=== PATIENT | male | born 1985 | race African-American/Black ===

== ENCOUNTER 2016-11-17 21:34 | Emergency (ER) | payer MEDICAID, OTHER ==
[~2016-11-17] VITALS: Ht 185.4 cm; Wt 81.6 kg
[~2016-11-17 21:34] MED LIST: ACYCLOVIR400 MG ORAL; AMOXICILLIN500 MG ORAL; COLACE100 MG ORAL; IBUPROFEN600 MG ORAL; NKM; PROMETHAZINE-D118 ML ORAL; ZITHROMAX250 MG ORAL
[2016-11-17] MEDS ORDERED: MAGNESIUM CITR296 M1 PO (22:05)
[2016-11-17] MEDS ORDERED: AUGMENTIN 875-1 EAC1 ORAL (22:05)
[2016-11-17] MEDS ORDERED: IBUPROFEN600 MG ORAL (22:05)
[2016-11-17 22:09] VITALS: BP 124/79
[2016-11-17 22:10] VITALS: BP 1/1
--- NOTE | 2016-11-18 01:44 | Emergency Room Report ---
History of Present Illness General Chief Complaint: Upper Respiratory Illness Source: Patient Present Illness HPI Patient presents with complaints of sore throat Mild cough Pain with swallowing Reports the pain is 3/10 Questionable low-grade fever Denies any neck pain or photophobia denies any chest pain Symptoms ongoing for the past several days Patient had tried gargling which was not helping patient also reports smoking cigars Allergies: Coded Allergies: No Known Allergies (Unverified , 11/18/15) Patient History Past Medical History: see triage record Pertinent Family History: none Reviewed Nursing Documentation: PMH: Agreed, PSxH: Agreed Nursing Documentation-PMH Past Medical History: No Stated History Review of Systems All Other Systems: negative except mentioned in HPI Physical Exam Vital Signs Date Time Temp Pulse Resp B/P Pulse Ox O2 Delivery O2 Flow Rate FiO2 11/17/16 21:55 100.2 99 13 124/79 98 Room Air Sp02 EP Interpretation: reviewed, normal General Appearance: well appearing, no apparent distress Head: normocephalic, atraumatic Eyes: bilateral eye EOMI, bilateral eye PERRL ENT: hearing grossly normal, TMs + canals normal, uvula midline, pharyngeal erythema Neck: full range of motion, supple, no meningismus, no bony tend Respiratory: lungs clear, normal breath sounds, no rhonchi, no respiratory distress, no retraction, no accessory muscle use Cardiovascular #1: normal peripheral pulses, regular rate, rhythm, no edema, no gallop, no JVD, no murmur Gastrointestinal: normal bowel sounds, non tender, soft, no mass, no organomegaly, non-distended, no guarding, no hernia, no pulsatile mass, no rebound Genitourinary: no CVA tenderness Musculoskeletal: normal inspection Neurologic: oriented x3, responsive, 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, motor strength/ tone normal, sensory intact Psychiatric: mood/affect normal Skin: normal color, no rash, warm/dry, palpation normal Lymphatic: normal inspection, no adenopathy Medical Decision Making Diagnostic Impression: Primary Impression: Pharyngitis ER Course Patient's clinical eval along with physical findings are in line with likely pharyngitis Uvula is midline no signs of any peritonsillar abscess Patient will have initial conservative outpatient trial on oral antibiotics and requires close followup Last Vital Signs Date Time Temp Pulse Resp B/P Pulse Ox O2 Delivery O2 Flow Rate FiO2 11/17/16 22:10 10/1711/17/16 22:09 100.2 13 98 Room Air 11/17/16 22:09 99 Status: improved Disposition: HOME, SELF-CARE Condition: Stable Scripts Magnesium Citrate (MAGNESIUM CITRATE) 296 Ml Solution 150 ML PO DAILY for 5 Days, ML Prov: ELVIRA LAWRENCE D.O. 11/17/16 Ibuprofen* (MOTRIN*) 600 Mg Tablet 600 MG ORAL Q8H Y for For Pain, #20 TAB 0 Refills Prov: ELVIRA LAWRENCE D.O. 11/17/16 Amoxicillin/Potassium Clav 875-125* (AUGMENTIN 875-125 TABLET*) 1 Each Tablet 1 TAB ORAL TWICE A DAY, #14 TAB Prov: ELVIRA LAWRENCE D.O. 11/17/16 Referrals: [facility],REFERRING (PCP) Patient Instructions: Pharyngitis Additional Instructions: Patient is provided with the discharge instructions notified to follow up with primary doctor in the next 2-3 days otherwise return to the er with any worsening symptoms. ELVIRA LAWRENCE D.O. Nov 18, 2016 01:44
== END 2016-11-17 22:10 | disposition home or self-care (01) ==
LOC: EMR 22:04
DX: J02.9 Acute pharyngitis, unspecified (principal)
CPT/HCPCS: 99284

== ENCOUNTER 2017-06-02 22:37 | Emergency (ER) | payer MEDICAID ==
[~2017-06-02] VITALS: Ht 185.4 cm; Wt 77.1 kg
[~2017-06-02 22:37] MED LIST changes: +AUGMENTIN 875-1 EAC1 ORAL; +MAGNESIUM CITR296 M1 PO
[2017-06-02 22:45] VITALS: BP 120/74
--- NOTE | 2017-06-02 23:09 | Emergency Room Report ---
History of Present Illness General Chief Complaint: Upper Respiratory Illness Source: Patient Present Illness HPI Patient presents with 2 weeks of upper respiratory symptoms. This congestion, dry cough, wheezing chest pain and headache. He's had some diarrhea last week. This is cleared up. Initially productive phlegm. Still with color from the drainage from his nose. He has heard himself wheezing and has used an inhaler in the past. No vomiting. + Nausea. Headache is 10/10 - pressure, more in sinuses. Allergies: Coded Allergies: No Known Allergies (Unverified , 11/18/15) Patient History Past Medical History: see triage record Social History: Reports: smoking Social History Narrative allegedly not working Reviewed Nursing Documentation: PMH: Agreed, PSxH: Agreed Nursing Documentation-PMH Past Medical History: No Stated History Review of Systems All Other Systems: negative except mentioned in HPI Physical Exam Vital Signs Date Time Temp Pulse Resp B/P Pulse Ox O2 Delivery O2 Flow Rate FiO2 06/02/17 22:41 99.1 99 18 120/74 97 Room Air Sp02 EP Interpretation: reviewed, normal General Appearance: well appearing, no apparent distress Head: normocephalic, atraumatic Eyes: bilateral eye PERRL, bilateral eye normal inspection ENT: hearing grossly normal, normal voice, moist mucus membranes, nasal congestion - and sinus pain, pharyngeal erythema Neck: full range of motion, supple Respiratory: lungs clear, normal breath sounds, no respiratory distress, speaking full sentences Cardiovascular #1: regular rate, rhythm Gastrointestinal: normal inspection, scaphoid Musculoskeletal: digits/nails normal, gait/station normal, normal range of motion Neurologic: alert, oriented x3, normal gait, grossly normal Psychiatric: mood/affect normal Skin: no rash Medical Decision Making Diagnostic Impression: Primary Impression: Sinusitis Qualified Codes: J01.00 - Acute maxillary sinusitis, unspecified Additional Impression: Bronchospasm ER Course Patient presents with 2 weeks of URI with SERNA and congestion/sinus pain. Ddx: sinusitis, bronchospasm, viral, bacterial. Will treat with albuterol and antibiotics. Also will give phenergan with codiene as pain is severe. Improved with treatment. Patient stable for outpatient observation and treatment. Last Vital Signs Date Time Temp Pulse Resp B/P Pulse Ox O2 Delivery O2 Flow Rate FiO2 06/03/17 00:50 99.1 95 19 129/78 98 Room Air Status: improved Disposition: HOME, SELF-CARE Condition: Improved Scripts Codeine/Promethazine Hcl* (PROMETHAZINE-CODEINE SYRUP*) 118 Ml Syrup 5 ML ORAL Q6H Y for For Cough, #60 ML 0 Refills Prov: Chavez Villela M.D. 06/03/17 Ibuprofen* (MOTRIN*) 600 Mg Tablet 600 MG ORAL Q6H Y for For Pain, #20 TAB Prov: Chavez Villela M.D. 06/03/17 Chlorpheniramine Maleate (CHLOR-TRIMETON) 4 Mg Tablet 4 MG PO Q6HR Y for congestion, #14 TAB Prov: Chavez Villela M.D. 06/03/17 Amoxicillin* (AMOXIL*) 500 Mg Capsule 500 MG ORAL THREE TIMES A DAY, #21 CAP Prov: Chavez Villela M.D. 06/03/17 Chavez Villela M.D. Jun 02, 2017 23:09
[2017-06-02] MEDS ORDERED: Albuterol ud Inhalation HHN ONE (23:15)
[2017-06-02] MEDS ORDERED: Promethazine/Codeine 5ml UD ORAL ONE (23:15)
[2017-06-03] MEDS ORDERED: PROMETHAZINE-C118 M1 ORAL (00:29)
[2017-06-03] MEDS ORDERED: IBUPROFEN600 MG ORAL (00:29)
[2017-06-03] MEDS ORDERED: AMOXICILLIN500 MG ORAL (00:29)
[2017-06-03] MEDS ORDERED: CHLOR-TRIMETON4 MG PO (00:29)
[2017-06-03 00:45] VITALS: BP 129/78
[2017-06-03 00:50] VITALS: BP 129/78
== END 2017-06-03 00:50 | disposition home or self-care (01) ==
LOC: EMR 23:09
DX: J32.9 Chronic sinusitis, unspecified (principal); J98.01 Acute bronchospasm; F17.200 Nicotine dependence, unspecified, uncomplicated
CPT/HCPCS: 94664; 99284

== ENCOUNTER 2017-09-13 17:24 | Emergency (ER) | payer MEDICAID ==
[~2017-09-13] VITALS: Ht 185.4 cm; Wt 65.8 kg
[~2017-09-13 17:24] MED LIST changes: +CHLOR-TRIMETON4 MG PO; +PROMETHAZINE-C118 M1 ORAL
[2017-09-13 19:15] VITALS: BP 131/82
[2017-09-13] MEDS ORDERED: AMOXICILLIN500 MG ORAL (19:33)
[2017-09-13] MEDS ORDERED: MIRALAX119 GM PO (19:33)
[2017-09-13] MEDS ORDERED: COLACE100 MG ORAL (19:33)
[2017-09-13] MEDS ORDERED: ACETAMINOPHEN-1 EAC1 ORAL (19:33)
[2017-09-13 19:36] VITALS: BP 131/82
--- NOTE | 2017-09-13 22:57 | Emergency Room Report ---
History of Present Illness General Chief Complaint: Upper Respiratory Illness Source: Patient Present Illness [facility] The patient is a 31-year-old male presenting for multiple complaints including constipation for the past week and sore throat. The patient states that he has a long-standing history of constipation and this is normal for him. Last bowel movement was 3 days ago and painful. He denies any blood in stools. He has not tried any medication or remedy for this. He is also complaining of sore throat which began yesterday. Described as an 8/ 10 dull ache to the back of the throat and is worse with swallowing. He admits to sick contacts with the same symptoms. He denies any recent travel. He denies any radiating pain. He denies any other symptoms including N, V, F, chills, melena, hematochezia, abd pain Allergies: Coded Allergies: No Known Allergies (Unverified , 11/18/15) Patient History Past Medical History: see triage record Pertinent Family History: none Reviewed Nursing Documentation: PMH: Agreed, PSxH: Agreed Nursing Documentation-PMH Past Medical History: No Stated History Review of Systems All Other Systems: negative except mentioned in HPI Physical Exam Vital Signs Date Time Temp Pulse Resp B/P (MAP) Pulse Ox O2 Delivery O2 Flow Rate FiO2 09/13/17 17:38 99.1 86 16 131/82 98 Room Air 09/13/17 18:00 96 Sp02 EP Interpretation: reviewed, normal General Appearance: no apparent distress, alert, GCS 15, non-toxic Head: normocephalic, atraumatic Eyes: bilateral eye normal inspection, bilateral eye PERRL ENT: hearing grossly normal, no angioedema, normal voice, uvula midline, tonsillar swelling, pharyngeal erythema Neck: full range of motion, supple/symm/no masses Respiratory: chest non-tender, lungs clear, normal breath sounds, speaking full sentences Cardiovascular #1: regular rate, rhythm, no edema Gastrointestinal: normal bowel sounds, non tender, soft, non-distended, no guarding, no rebound Musculoskeletal: back normal, gait/station normal, normal range of motion, non- tender Neurologic: alert, oriented x3, responsive, motor strength/tone normal, sensory intact, speech normal Psychiatric: judgement/insight normal, memory normal, mood/affect normal, no suicidal/homicidal ideation Skin: normal color, no rash, warm/dry, well hydrated Lymphatic: adenopathy - cervical Medical Decision Making PA Attestation Dr. Spence is my supervising physician. Patient management was discussed with my supervising physician Diagnostic Impression: Primary Impression: Pharyngitis Qualified Codes: J02.9 - Acute pharyngitis, unspecified Additional Impression: Constipation Qualified Codes: K59.00 - Constipation, unspecified ER Course The patient is a 31-year-old male presenting for multiple complaints including constipation for the past week and sore throat Differential diagnosis include but not limited to pharyngitis, sinusitis, AOM, bronchitis, PNA Differential diagnoses considered but not limited to: Constipation, gastroenteritis, hemorrhoids, among others Physical exam: Vitals within normal limits. Afebrile. No apparent distress HEENT exam: There is bilateral tonsillar edema, erythema. Uvula midline. Moist mucous membranes. There is bilateral cervical lymphadenopathy. Abd is soft and non tender. Normal BS. Non distended Lungs are clear to auscultation bilaterally Skin is warm and dry. No rash The patient will be discharged home with a prescription for amoxicillin, T3, miralax, and colace and is given ER precautions. Patient will followup with primary care Last Vital Signs Date Time Temp Pulse Resp B/P (MAP) Pulse Ox O2 Delivery O2 Flow Rate FiO2 09/13/17 19:36 99.1 16 131/82 98 Room Air 96 09/13/17 19:15 88 Status: improved Disposition: HOME, SELF-CARE Condition: Improved Scripts Amoxicillin* (AMOXIL*) 500 Mg Capsule 500 MG ORAL Q12HR, #20 CAP Prov: TERZIAN,LEATHA P.A. 09/13/17 Acetaminophen With Codeine (T#3) (TYLENOL #3 TAB*) Y Tab 1 TAB ORAL Q6HR Y for For Pain, #10 TAB Prov: TERZIAN,LEATHA P.A. 09/13/17 Polyethylene Glycol 3350 (MIRALAX) 119 Gm Powder 17 GM PO DAILY, #119 GM Prov: TERZIAN,LEATHA P.A. 09/13/17 Docusate Sodium* (COLACE*) 100 Mg Capsule 100 MG ORAL TWICE A DAY, #15 CAP Prov: TERZIAN,LEATHA P.A. 09/13/17 Referrals: NON PHYSICIAN (PCP) Patient Instructions: Constipation, Adult, Upper Respiratory Infection, Adult Additional Instructions: I discussed my findings with the patient. All questions and concerns have been answered. Treatment and medication compliance have been addressed. I advised the patient that they need to follow up with PMD in 3-5 days. Return to ED if pain remains or worsens, cough worsens or remains, you notice blood in your sputum, you notice wheezing, you experience a fever, or if needed for any reason. Patient verbalized understanding of discharge instructions. LEATHA MARROQUIN Sep 13, 2017 22:57
--- NOTE | 2017-09-14 11:17 | Diagnostic Imaging Report ---
Indication: COUGH Technique: One view of the chest Comparison: none Findings: Lungs and pleural spaces are clear. Heart size is normal Impression: No acute process
== END 2017-09-13 19:36 | disposition home or self-care (01) ==
LOC: EMR 18:41
DX: J02.9 Acute pharyngitis, unspecified (principal); K59.00 Constipation, unspecified; R05 Cough
CPT/HCPCS: 71010; 99284

== ENCOUNTER 2017-11-02 21:18 | Emergency (ER) | payer MEDICAID ==
[~2017-11-02] VITALS: Ht 185.4 cm; Wt 79.4 kg
[~2017-11-02 21:18] MED LIST changes: +ACETAMINOPHEN-1 EAC1 ORAL; +MIRALAX119 GM PO
[2017-11-02 21:30] VITALS: BP 110/74
--- NOTE | 2017-11-02 21:33 | Emergency Room Report ---
History of Present Illness General Chief Complaint: Flu Like Symptoms Source: Patient Present Illness HPI Is a 32-year-old male with no past medical history. He presents with chief complaint of sore throat, congestion, cough. Onset for last 2 days. He just got back from out of town and flew in. Denies any other complaint. Pain is 8/ 10. Worse with lying flat. No nausea no vomiting. No fever or chill. Allergies: Coded Allergies: No Known Allergies (Unverified , 11/18/15) Patient History Past Medical History: none, see triage record, old chart reviewed Past Surgical History: none Pertinent Family History: none Social History: Denies: smoking Immunizations: other Reviewed Nursing Documentation: PMH: Agreed, PSxH: Agreed Nursing Documentation-PMH Past Medical History: No Stated History Review of Systems Eye: Denies: eye pain, blurred vision ENT: Reports: nose congestion, throat pain, nasal discharge, Denies: ear pain, throat swelling Respiratory: Reports: cough, Denies: shortness of breath Cardiovascular: Denies: chest pain, palpitations Gastrointestinal: Denies: abdominal pain, diarrhea, nausea, vomiting Musculoskeletal: Denies: back pain, joint pain Skin: Denies: rash Neurological: Denies: headache, numbness Endocrine: Denies: increased thirst, increased urine Hematologic/Lymphatic: Denies: easy bruising All Other Systems: negative except mentioned in HPI Physical Exam Vital Signs Date Time Temp Pulse Resp B/P (MAP) Pulse Ox O2 Delivery O2 Flow Rate FiO2 11/02/17 21:21 99.1 108 20 109/78 95 Room Air vitals unremarkable Sp02 EP Interpretation: reviewed, normal General Appearance: well appearing, no apparent distress, alert Head: normocephalic, atraumatic Eyes: bilateral eye PERRL, bilateral eye EOMI ENT: hearing grossly normal, uvula midline - Enlarged, tonsillar swelling, pharyngeal erythema Neck: full range of motion, supple, no meningismus Respiratory: chest non-tender, lungs clear, normal breath sounds Cardiovascular #1: regular rate, rhythm, no murmur Gastrointestinal: normal bowel sounds, non tender, no mass, no organomegaly, no bruit, non-distended Musculoskeletal: back normal, gait/station normal, normal range of motion Psychiatric: mood/affect normal Skin: warm/dry Medical Decision Making Diagnostic Impression: Primary Impression: Upper respiratory infection Qualified Codes: J06.9 - Acute upper respiratory infection, unspecified ER Course Present with an upper rest or infection secondary to a viral illness. No evidence of bacterial infection. Patient reassured. No evidence of strep throat, meningitis, pneumonia to name a few. We'll discharge home. Last Vital Signs Date Time Temp Pulse Resp B/P (MAP) Pulse Ox O2 Delivery O2 Flow Rate FiO2 11/02/17 21:21 99.1 108 20 109/78 95 Room Air Status: unchanged Disposition: HOME, SELF-CARE Condition: Stable Scripts Ibuprofen* (MOTRIN*) 600 Mg Tablet 600 MG ORAL THREE TIMES A DAY, #30 TAB 0 Refills Prov: LEELEE CARY M.D. 11/02/17 Pseudoephedrine Hcl* (NEXAFED*) 30 Mg Tablet 60 MG ORAL Q6H Y for congestion, #30 TAB Prov: LEELEE CARY M.D. 11/02/17 Additional Instructions: Followup with your Dr. in 7 days. Increase fluid. Saltwater gargle. Return if symptom worsen. LEELEE CARY M.D. Nov 02, 2017 21:33
[2017-11-02] MEDS ORDERED: NEXAFED30 MG ORAL (21:38)
[2017-11-02] MEDS ORDERED: IBUPROFEN600 MG ORAL (21:38)
== END 2017-11-02 21:45 | disposition home or self-care (01) ==
LOC: EMR 21:30
DX: J06.9 Acute upper respiratory infection, unspecified (principal)
CPT/HCPCS: 99283

== ENCOUNTER 2018-07-11 00:14 | Emergency (ER) | payer MEDICAID ==
[~2018-07-11] VITALS: Ht 185.4 cm; Wt 78.0 kg
[~2018-07-11 00:14] MED LIST changes: +NEXAFED30 MG ORAL
[2018-07-11 00:23] VITALS: BP 118/76
[2018-07-11] MEDS ORDERED: DOXYCYCLINE MO100 MG ORAL (00:55)
[2018-07-11] MEDS ORDERED: BENADRYL25 MG ORAL (00:55)
--- NOTE | 2018-07-11 00:56 | Emergency Room Report ---
History of Present Illness General Chief Complaint: Skin Rash/Abscess Source: Patient Present Illness HPI Is a 32-year-old male with no recurrent past mental history. He presents with chief complaint of rash and itching. Onset for last couple weeks. Initially started on the lower extremity now making its way up. Now to his back. He just moved back home and his been sleeping on the couch. No fever chills but no nausea no vomiting. Worse with scratching. Better with rest. Denies any new medication or shampoo any other every day use. Has not taken anything for this. Allergies: Coded Allergies: No Known Allergies (Unverified , 11/18/15) Patient History Past Medical History: see triage record, old chart reviewed Past Surgical History: none Pertinent Family History: none Social History: Denies: smoking Immunizations: other Reviewed Nursing Documentation: PMH: Agreed; PSxH: Agreed Nursing Documentation-PM Past Medical History: No Stated History Review of Systems Eye: Denies: eye pain, blurred vision ENT: Denies: ear pain, nose congestion, throat swelling Respiratory: Denies: cough, shortness of breath Cardiovascular: Denies: chest pain, palpitations Gastrointestinal: Denies: abdominal pain, diarrhea, nausea, vomiting Musculoskeletal: Denies: back pain, joint pain Skin: Reports: rash Neurological: Denies: headache, numbness Endocrine: Denies: increased thirst, increased urine Hematologic/Lymphatic: Denies: easy bruising All Other Systems: negative except mentioned in HPI Physical Exam Vital Signs Date Time Temp Pulse Resp B/P (MAP) Pulse Ox O2 Delivery O2 Flow Rate FiO2 07/11/18 00:23 98.0 63 15 116/74 97 Room Air 98.1 vitals normal Sp02 EP Interpretation: reviewed, normal General Appearance: well appearing, no apparent distress, alert Head: normocephalic, atraumatic Eyes: bilateral eye PERRL, bilateral eye EOMI ENT: hearing grossly normal, normal pharynx Neck: full range of motion, supple, no meningismus Respiratory: chest non-tender, lungs clear, normal breath sounds Cardiovascular #1: regular rate, rhythm, no murmur Gastrointestinal: normal bowel sounds, non tender, no mass, no organomegaly, no bruit, non-distended Musculoskeletal: back normal, gait/station normal, normal range of motion Neurologic: alert, oriented x3 Psychiatric: mood/affect normal Skin: warm/dry, other - Small erythematous papule on his torso. Medical Decision Making Diagnostic Impression: Primary Impression: Rash and other nonspecific skin eruption Additional Impression: Cellulitis Qualified Codes: L03.90 - Cellulitis, unspecified ER Course Patient with a rash and itching to his body. This may be cellulitis. No evidence of any scabies or bedbugs. No evidence of any abscess or necrotizing fasciitis. Patient denies any drug use specifically amphetamine. Last Vital Signs Date Time Temp Pulse Resp B/P (MAP) Pulse Ox O2 Delivery O2 Flow Rate FiO2 07/11/18 00:23 98.0 63 15 116/74 97 Room Air 98.1 Status: improved Disposition: HOME, SELF-CARE Condition: Stable Scripts Diphenhydramine Hcl* (BENADRYL*) 25 Mg Capsule 50 MG ORAL Q6H PRN for Itching, #30 CAP Prov: LEELEE CARY M.D. 07/11/18 Doxycycline Monohydrate* (DOXYCYCLINE MONOHYDRATE*) 100 Mg Capsule 100 MG ORAL Q12H, #14 CAP 0 Refills Prov: LEELEE CARY M.D. 07/11/18 Additional Instructions: Follow-up with your doctor in 7 days. Return if symptom worsen. LEELEE CARY M.D. Jul 11, 2018 00:56
[2018-07-11 01:09] VITALS: BP 128/67
== END 2018-07-11 01:07 | disposition home or self-care (01) ==
LOC: EMR 00:50
DX: L03.319 Cellulitis of trunk, unspecified (principal)
CPT/HCPCS: 99283

== ENCOUNTER 2018-07-23 04:09 | Emergency (ER) | payer MEDICAID ==
[~2018-07-23] VITALS: Ht 185.4 cm; Wt 77.1 kg
[~2018-07-23 04:09] MED LIST changes: +BENADRYL25 MG ORAL; +DOXYCYCLINE MO100 MG ORAL
[2018-07-23] MEDS ORDERED: Lidocaine 2% 20mg/ml/EPI 0.01mg/ml 20ml ONE (04:45)
[2018-07-23] MEDS ORDERED: Lidocaine 2% 20mg/ml/Epi 0.005mg/ml 20ml vial INJ ONE (04:45)
[2018-07-23] MEDS ORDERED: Acetaminophen 500mg (ES) tab PO ONE (04:45)
[2018-07-23 04:50] VITALS: BP 120/78
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
[2018-07-23 06:22] VITALS: BP 115/70
== END 2018-07-23 06:22 | disposition home or self-care (01) ==
LOC: EMR 05:00
DX: S01.01XA Laceration without foreign body of scalp, initial encounter (principal); X99.8XXA Assault by other sharp object, initial encounter; Y92.89 Other specified places as the place of occurrence of the external cause
CPT/HCPCS: 12004; 99283; Z7502

== ENCOUNTER 2020-10-02 14:47 | Emergency (ER) | payer MEDICAID ==
[~2020-10-02] VITALS: Ht 185.4 cm; Wt 77.1 kg
--- NOTE | 2020-10-02 15:35 | NUR ---
ED Nurse Note:pt. left before seen by ER PA
--- NOTE | 2020-10-02 16:38 | Emergency Room Report ---
History of Present Illness General Chief Complaint: Upper Respiratory Illness Source: Patient Present Illness HPI This patient left prior to evaluation by medical provider. 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 Jesus is my supervising Physician whom patient management has been discussed with. Diagnostic Impression: Primary Impression: Patient left without being seen ER Course This patient left prior to evaluation by medical provider. Last Vital Signs Date Time Temp Pulse Resp B/P (MAP) Pulse Ox O2 Delivery O2 Flow Rate FiO2 10/02/20 15:26 98.2 82 16 130/88 (102) 97 Room Air Disposition: LEFT W/OUT BEING SEEN Condition: Unknown Referrals: NON PHYSICIAN (PCP) Ena Sharma Oct 02, 2020 16:38
[2020-10-02 17:16] VITALS: BP 130/88
== END 2020-10-02 15:35 | disposition left against medical advice (07) ==
LOC: EMR 15:35
DX: J06.9 Acute upper respiratory infection, unspecified (principal); Z53.21 Procedure and treatment not carried out due to patient leaving prior to being seen by health care provider

== ENCOUNTER → 2020-11-24 | Emergency (ER) | payer MEDICAID ==
[~2020-11-24] VITALS: Ht 185.4 cm; Wt 77.1 kg
[~2020-11-24] MED LIST changes: +CIPROFLOXACIN500 M2 ORAL; +Ciprofloxacin 500mg tab ORAL ONE; +METRONIDAZOLE500 MG ORAL; +Omnipaque-300 100ml vial INJ PRN; +PREDNISONE20 MG ORAL; +metroNIDAZOLE 500mg tab ORAL ONE
[2020-11-24 21:10] VITALS: BP 132/89
--- NOTE | 2020-11-24 21:10 | NUR ---
ED Nurse Note: labs and urine sent to lab 18G LAC placed
[2020-11-24 21:19] LABS: BASOPHILS % (AUTO) 0.7 % (0.0-2.0); EOSINOPHILS % (AUTO) 2.1 % (0.0-3.0); HEMATOCRIT 37.3 % (42.0-52.0); HEMOGLOBIN 11.6 G/DL (14.2-18.0); LYMPHOCYTES % (AUTO) 27.4 % (20.0-45.0); MEAN CORPUSCULAR VOLUME 96 FL (80-99); MONOCYTES % (AUTO) 7.7 % (1.0-10.0); NEUTROPHILS % (AUTO) 62.1 % (45.0-75.0); PLATELET COUNT 203 K/UL (150-450); RED BLOOD COUNT 3.89 M/UL (4.70-6.10); RED CELL DISTRIBUTION WIDTH 13.3 % (11.6-14.8); WHITE BLOOD COUNT 7.8 K/UL (4.8-10.8)
[2020-11-24 21:41] LABS: ANION GAP 6 mmol/L (5-15); BLOOD UREA NITROGEN 17 mg/dL (7-18); CALCIUM 8.8 MG/DL (8.5-10.1); CARBON DIOXIDE 30 MMOL/L (21-32); CHLORIDE 101 MMOL/L (98-107); CREATININE 1.1 MG/DL (0.55-1.30); POTASSIUM 3.9 MMOL/L (3.5-5.1); SODIUM 137 MMOL/L (136-145)
[2020-11-24 21:42] LABS: APPEARANCE,URINE CLEAR; BILIRUBIN, URINE NEGATIVE (NEGATIVE); GLUCOSE, URINE (UA) NEGATIVE (NEGATIVE); KETONES,URINE 1+ (NEGATIVE); NITRITE,URINE NEGATIVE (NEGATIVE); PH,URINE 5 (4.5-8.0); PROTEIN,URINE 1+ (NEGATIVE); UROBILINOGEN,URINE 4 MG/DL (0.0-1.0)
[2020-11-24 21:45] LABS: ALANINE AMINOTRANSFERASE 21 U/L (12-78); ALBUMIN 3.7 G/DL (3.4-5.0); ALBUMIN/GLOBULIN RATIO 0.6 (1.0-2.7); ALKALINE PHOSPHATASE 95 U/L (46-116); ASPARTATE AMINO TRANSFERASE 22 U/L (15-37); BILIRUBIN,TOTAL 0.5 MG/DL (0.2-1.0)
[2020-11-24 21:58] LABS: COLOR,URINE YELLOW; LEUKOCYTE ESTERASE ,URINE TRACE (NEGATIVE)
--- NOTE | 2020-11-24 23:03 | Emergency Room Report ---
History of Present Illness General Chief Complaint: Constipation [facility] Present [facility]ness Allergies: Coded Allergies: No Known Allergies (Unverified , 11/18/15) COVID-19 Screening Contact w/high risk pt: No Experienced COVID-19 symptoms?: No COVID-19 Testing performed SECURITY AGENT: Yes - 2 wks ago COVID-19 Screening: Negative COVID-19 COVID-19 Testing Source: na ([facility]) Nursing Documentation-[facility] Past Medical History: No Stated History ([facility]) Physical Exam Vital Signs Date Time Temp Pulse Resp B/P (MAP) Pulse Ox O2 Delivery O2 Flow Rate FiO2 11/24/20 20:09 98.1 79 19 132/89 (103) 96 Room Air ([facility]) Medical Decision Making Diagnostic Impression: Primary Impression: Bloody stool Additional Impressions: Constipation Shingles Laboratory Tests Test 11/24/20 21:06 White Blood Count 7.8 K/UL (4.8-10.8) Red Blood Count 3.89 M/UL (4.70-6.10) L Hemoglobin 11.6 G/DL (14.2-18.0) L Hematocrit 37.3 % (42.0-52.0) L Mean Corpuscular Volume 96 FL (80-99) Mean Corpuscular Hemoglobin 29.7 PG (27.0-31.0) Mean Corpuscular Hemoglobin Concent 31.0 G/DL (32.0-36.0) L Red Cell Distribution Width 13.3 % (11.6-14.8) Platelet Count 203 K/UL (150-450) Mean Platelet Volume 9.1 FL (6.5-10.1) Neutrophils (%) (Auto) 62.1 % (45.0-75.0) Lymphocytes (%) (Auto) 27.4 % (20.0-45.0) Monocytes (%) (Auto) 7.7 % (1.0-10.0) Eosinophils (%) (Auto) 2.1 % (0.0-3.0) Basophils (%) (Auto) 0.7 % (0.0-2.0) Urine Color Yellow Urine Appearance Clear Urine pH 5 (4.5-8.0) Urine Specific [place] 1.025 (1.005-1.035) Urine Protein 1+ (NEGATIVE) H Urine Glucose (UA) Negative (NEGATIVE) Urine Ketones 1+ (NEGATIVE) H Urine Blood Negative (NEGATIVE) Urine Nitrite Negative (NEGATIVE) Urine Bilirubin Negative (NEGATIVE) Urine Urobilinogen 4 MG/DL (0.0-1.0) H Urine Leukocyte Esterase Trace (NEGATIVE) H Urine RBC 0 /HPF (0 - 0) Urine WBC 0-2 /HPF (0 - 0) Urine Squamous Epithelial Cells None /LPF (NONE/OCC) Urine Bacteria Few /HPF (NONE) Sodium Level 137 MMOL/L (136-145) Potassium Level 3.9 MMOL/L (3.5-5.1) Chloride Level 101 MMOL/L (98-107) Carbon Dioxide Level 30 MMOL/L (21-32) Anion Gap 6 mmol/L (5-15) Blood Urea Nitrogen 17 mg/dL (7-18) Creatinine 1.1 MG/DL (0.55-1.30) Estimated Glomerular Filtration Rate > 60 mL/min (>60) Glucose Level 93 MG/DL (74-106) Calcium Level 8.8 MG/DL (8.5-10.1) Total Bilirubin 0.5 MG/DL (0.2-1.0) Aspartate Amino Transferase (AST) 22 U/L (15-37) Alanine Aminotransferase (ALT) 21 U/L (12-78) Alkaline Phosphatase 95 U/L (46-116) Total Protein 9.4 G/DL (6.4-8.2) H Albumin 3.7 G/DL (3.4-5.0) Globulin 5.7 g/dL Albumin/Globulin Ratio 0.6 (1.0-2.7) L Chlamydia trachomatis RNA Pending Neisseria gonorrhoeae RNA Pending (Kelly Spence DO) ER Course Patient signed out by prior attending pending CT abdomen pelvis. Please refer to their note for further history and physical. Patient CT consistent with prostatitis. Patient started on Flagyl and Cipro. Patient advised to follow-up with GI and advised that there could be an underlying mass that would require further evaluation. Patient demonstrated understanding. I also gave him a copy of his CT results. After discussing risks and benefits of further diagnostics, treatment plans, as well as indications for and risks of admission, the patient is agreeable to being discharged home. I have explained that their evaluation and treatment in the emergency department today is an important step towards [facility] achieving better health but that their evaluation today is not intended to replace further evaluation and treatment by a physician in their local clinic. I have explained that while the current findings suggest no immediate life threatening emergency they will require further evaluation and treatment by a physician of their choice in their area. They understand that it will be necessary for them to review the final reports of their ED visit with their clinic physician. We have reviewed indications for return to the Emergency Department. I have explained that additional time may need to pass and/or additional testing as an outpatient may be necessary before a definitive diagnosis can be made. They tell me they are willing to follow up as instructed within the timeframe I recommend. They appear to understand what we discussed. Additionally they understand that if they are unable to be seen by an outpatient physician they are welcome, and in fact should, return to the Emergency Department for a repeat evaluation. The patient is stable at time of discharge. (Lore Roper M.D.) CT/MRI/US Diagnostic Results CT/MRI/US Diagnostic Results : Imaging Test Ordered: CT abd/pelvis (Kelly Spence DO) CT/MRI/US Diagnostic Results : Impression History: PAIN Exam: CT ABDOMEN & PELVIS With Contrast Technique: Axial contrast-enhanced CT of the abdomen and pelvis using 93 cc of IV contrast. Coronal and sagittal reformatted images. Technique more: CTDI is 5.0 mGy and DLP is 268.80 mGy-cm. Technique more: One or more of the following dose reduction techniques were used: automated exposure control, adjustment of the mA and/or kV according to patient size, use of iterative reconstruction technique. Comparison: Findings: Lung bases: Normal Distal heart and esophagus: Normal Liver: No intrahepatic lesion or ductal dilation. Gallbladder: Slightly contracted. Spleen: Normal Pancreas: Normal Adrenals: Normal Kidneys: Normal Bowel: Normal appendix. Diffuse circumferential mucosal thickening of the rectum measuring up to 1.5 cm consistent with severe proctitis. Perirectal 1.5 cm lymph nodes and streaky changes in the fat. Please clinically correlate to exclude mucosal mass. Pelvis: Urinary bladder, inguinal region are unremarkable. Bones: No acute findings. Impression: 1. Up to 1.5 cm diffuse mucosal thickening with heterogeneous enhancement involving the rectum consistent with severe proctitis. Mucosal mass not excluded. Surrounding fat has streaky inflammatory changes and up to 1.5 cm multiple lymph nodes. Radiologist: Naty Sellers MD Electronically Signed: 11/25/20 00:53 Study ready at 00:43 and initial results transmitted at 00:53 (Lore Roper M.D.) Last Vital Signs Date Time Temp Pulse Resp B/P (MAP) Pulse Ox O2 Delivery O2 Flow Rate FiO2 11/24/20 21:10 98.1 19 132/89 96 Room Air 11/24/20 20:09 79 (Kelly Spence DO) Disposition: HOME, SELF-CARE Condition: Stable Scripts Metronidazole* (FLAGYL*) 500 Mg Tablet 500 MG ORAL THREE TIMES A DAY, #21 TAB Prov: Lore Roper M.D. 11/25/20 Ciprofloxacin Hcl* (CIPROFLOXACIN HCL*) 500 Mg Tablet 500 MG ORAL Q12H, #14 TAB 0 Refills Prov: Lore Roper M.D. 11/25/20 Referrals: NON PHYSICIAN (PCP) Additional Instructions: The patient was provided with discharge instructions, notified to follow-up with a primary care doctor and or specialist in the next 24-48 hours, and to return to the ED if they have worsening of their symptoms. Please note that this report is being documented using [employer] technology. This can lead to erroneous entry secondary to incorrect interpretation by the dictating instrument. Kelly Spence DO Nov 24, 2020 23:03 Lore Roper M.D. Nov 25, 2020 01:04
--- NOTE | 2020-11-25 00:54 | Diagnostic Imaging Report ---
History: PAIN Exam: CT ABDOMEN + PELVIS With Contrast Technique: Axial contrast-enhanced CT of the abdomen and pelvis using 93 cc of IV contrast. Coronal and sagittal reformatted images. Technique more: CTDI is 5.0 mGy and DLP is 268.80 mGy-cm. Technique more: One or more of the following dose reduction techniques were used: automated exposure control, adjustment of the mA and/or kV according to patient size, use of iterative reconstruction technique. Comparison: Findings: Lung bases: Normal Distal heart and esophagus: Normal Liver: No intrahepatic lesion or ductal dilation. Gallbladder: Slightly contracted. Spleen: Normal Pancreas: Normal Adrenals: Normal Kidneys: Normal Bowel: Normal appendix. Diffuse circumferential mucosal thickening of the rectum measuring up to 1.5 cm consistent with severe proctitis. Perirectal 1.5 cm lymph nodes and streaky changes in the fat. Please clinically correlate to exclude mucosal mass. Pelvis: Urinary bladder, inguinal region are unremarkable. Bones: No acute findings. Impression: 1. Up to 1.5 cm diffuse mucosal thickening with heterogeneous enhancement involving the rectum consistent with severe proctitis. Mucosal mass not excluded. Surrounding fat has streaky inflammatory changes and up to 1.5 cm multiple lymph nodes.
[2020-11-25 01:35] VITALS: BP 132/89
--- NOTE | 2020-11-25 01:40 | NUR ---
ER DISCHARGE NOTE: Patient is cleared to be discharged per ERMD, pt is aox4, on room air, with stable vital signs. pt was given dc and prescription instructions, pt was able to verbalize understanding, pt id band and iv site removed without complications. pt is able to ambulate with steady gait. pt took all belongings.
== END | disposition home or self-care (01) ==
LOC: EMR 20:55
DX: K59.00 Constipation, unspecified (principal); K92.1 Melena; B02.9 Zoster without complications
CPT/HCPCS: 36415; 74177; 80053; 81003; 85025; 87491; 87590; Q9965; Z7502; 99284